=== PATIENT | female | born 1945 | race African-American/Black ===

== ENCOUNTER 2017-04-22 21:51 | Observation (INO) ==
--- NOTE | 2017-04-22 22:23 | Emergency Department Note ---
Disposition Clinical Impression: Hypokalemia, Lactic acidosis Syncope Qualifiers: Syncope type: unspecified Qualified Code(s): R55 - Syncope and collapse Disposition: Admitted As Inpatient Condition: Good Referrals: NO,PCP [Non-Partnered Physician] - Forms: ED Satisfaction Letter Time of Disposition: 01:18 General Adult HPI - General Chief complaint: ED Syncope Stated complaint: Abdominal Pain/Syncopal Episode Time Seen by Provider: 04/22/17 21:58 Source: EMS Mode of arrival: wheelchair Limitations: no limitations Nursing Notes Reviewed: Yes Vital Signs Reviewed: Yes - History of Present Illness HPI Narrative: Patient is a 71-year-old female that presents to the ED via EMS. Patient was eating dinner at [place] [employer] tonight and was sitting at the dinner table and had mid epigastric pain and got lightheaded and passed out. She denies falling or having any injury during this time. EMS stated that the patient was hypotensive upon arrival of ems. They gave 200 mL of normal saline and her blood pressure normalized. Patient states that she is now feeling a lot better and does not have any pain at this time but is feeling tired. Pain Scale: 0 - Related Data Allergies Allergy/AdvReac Type Severity Reaction Status Date / Time Penicillins AdvReac Rash Verified 04/22/17 21:53 All systems ED: reviewed and negative except as stated. Constitutional: Reports: fever Cardiovascular: Denies: chest pain, palpitations Respiratory: Reports: dyspnea Gastrointestinal: Reports: abdominal pain. Denies: nausea, vomiting Endocrine: Reports: fatigue Past Medical History - Past Medical History Medical history: Reports: hyperlipidemia, hypertension Psychiatric history: Reports: no psych history - Social History Smoking Status: Never smoker Smokeless Tobacco Status: No Alcohol use: Reports: rarely Drug use: Reports: none Physical Exam - General Limitations: no limitations General appearance: alert, in no apparent distress - Head Head exam: atraumatic, normocephalic - Eye Eye exam: Present: normal appearance, PERRL - Neck Neck exam: Present: normal inspection, trachea midline - Chest Chest inspection: Present: symmetric chest wall rise - Respiratory Respiratory exam: Present: normal lung sounds bilaterally. Absent: respiratory distress, wheezes - Cardiovascular Cardiovascular exam: Present: regular rate, normal rhythm, +S1, +S2 - Abdominal Exam Abdominal exam: Present: soft, Non-Tender, normal bowel sounds - Expanded Lower Extremity Exam Lower leg exam: Present: normal inspection. Absent: swelling, erythema - Neurological Exam Neurological exam: Present: alert, oriented X3 - Psychiatric Psychiatric exam: Present: normal affect, normal mood - Skin Skin exam: Present: warm, dry, intact Course Vital Signs Temperature 97.8 F 04/22/17 21:54 Pulse Rate 56 04/22/17 21:54 Respiratory Rate 18 04/22/17 21:54 Blood Pressure 123/74 04/22/17 21:54 O2 Sat by Pulse Oximetry 99 04/22/17 21:54 Temperature 97.8 F 04/22/17 21:54 Pulse Rate 90 04/23/17 00:43 Respiratory Rate 18 04/23/17 00:43 Blood Pressure 105/69 04/23/17 00:43 O2 Sat by Pulse Oximetry 98 04/23/17 00:43 Oxygen Delivery Oxygen Delivery Room Air Medical Decision Making - MDM Narrative Medical decision making narrative: Patient is a 71-year-old female that presents to the with abdominal pain and syncope. CT chest PE and CTA of abdomen and pelvis was negative for any dissection or aortic aneurysm. Labs showed that she had a low elevated lactic acid and was hypokalemic. Based on the patient's presentation of syncope and hypotension with elevated lactic acid and hypokalemia I am going to admit the patient. The patient has refused IV potassium given so we will give her 1 dose of K-Dur here in the ER. I spoke with the hospitalist and the patient will be admitted to their service. - Medical Records Medical records reviewed: Yes I reviewed the patient's medical records. - Lab Data Lab results reviewed: Yes I reviewed the patient's lab results. Result diagrams: 04/22/17 22:27 04/22/17 22:27 Lab Results 04/22/17 04/22/17 04/22/17 Range/Units 22:27 22:27 22:27 WBC 11.6 H (4.3-11.1) K/mcL RBC 4.05 (3.82-4.97) M/mcL Hgb 10.1 L (11.5-15.4) g/dL Hct 31.6 L (35.3-44.9) % MCV 78.0 L (83.0-100.0) fL MCH 24.9 L (28.0-33.3) pg MCHC 32.0 (31.6-35.5) g/dL RDW 15.7 H (11.5-14.5) % Plt Count 423 H (140-400) K/mcL MPV 8.7 L (9.4-12.4) fL Immature Gran % 0.3 (0-4) % Seg Neutrophils % 63.6 % Lymphocytes % 26.7 % Monocytes % 6.4 % Eosinophils % 2.4 % Basophils % 0.6 % Neutrophils # 7.4 (1.6-8.9) K/mcL Lymphocytes # 3.1 (0.6-4.6) K/mcL Monocytes # 0.8 (0.0-1.3) K/mcL Eosinophils # 0.3 (0.0-0.6) K/mcL Basophils # 0.1 (0.0-0.2) K/mcL Sodium 138 (136-145) mEq/L Potassium 2.7 L (3.5-4.5) mEq/L Chloride 106 (98-109) mEq/L Carbon Dioxide 20 (19-29) mEq/L BUN 14 (7-20) mg/dL Creatinine 0.89 (0.57-1.11) mg/dL Est GFR ( Amer) > 60 (> 60) Est GFR (Non-Af Amer) > 60 (> 60) BUN/Creatinine Ratio 16 (6-26) Glucose 92 (70-99) mg/dL Calculated Osmolality 286 (280-300) Lactic Acid 2.7 H (0.5-2.2) mmol/L Calcium 9.5 (8.6-10.8) mg/dL Magnesium 2.1 (1.6-2.6) mg/dL Total Bilirubin 0.4 (0.2-1.2) mg/dL AST 17 (5-34) Units/L ALT 16 (0-55) Units/L Alkaline Phosphatase 88 (38-126) Units/L Troponin I (0-0.03) ng/mL Serum Total Protein 7.0 (6.0-8.3) g/dL Albumin 3.7 (3.5-5.0) g/dL Globulin 3.3 (2.4-3.5) g/dL Albumin/Globulin Ratio 1.1 (1.1-2.2) Lipase 53 (8-78) Units/L Urine Opiates Screen (Vssbaw=103) ng/mL Ur Barbiturates Screen (Lkhfhv=349) ng/mL Ur Phencyclidine Scrn (Cutoff=25) ng/mL Ur Amphetamines Screen (Wocepo=8914) ng/mL U Benzodiazepines Scrn (Khzajt=875) ng/mL Urine Cocaine Screen (Cutoff= 300) ng/mL U Marijuana (THC) Screen (Cutoff = 50) ng/mL 04/22/17 04/22/17 Range/Units 22:27 23:55 WBC (4.3-11.1) K/mcL RBC (3.82-4.97) M/mcL Hgb (11.5-15.4) g/dL Hct (35.3-44.9) % MCV (83.0-100.0) fL MCH (28.0-33.3) pg MCHC (31.6-35.5) g/dL RDW (11.5-14.5) % Plt Count (140-400) K/mcL MPV (9.4-12.4) fL Immature Gran % (0-4) % Seg Neutrophils % % Lymphocytes % % Monocytes % % Eosinophils % % Basophils % % Neutrophils # (1.6-8.9) K/mcL Lymphocytes # (0.6-4.6) K/mcL Monocytes # (0.0-1.3) K/mcL Eosinophils # (0.0-0.6) K/mcL Basophils # (0.0-0.2) K/mcL Sodium (136-145) mEq/L Potassium (3.5-4.5) mEq/L Chloride (98-109) mEq/L Carbon Dioxide (19-29) mEq/L BUN (7-20) mg/dL Creatinine (0.57-1.11) mg/dL Est GFR ( Amer) (> 60) Est GFR (Non-Af Amer) (> 60) BUN/Creatinine Ratio (6-26) Glucose (70-99) mg/dL Calculated Osmolality (280-300) Lactic Acid (0.5-2.2) mmol/L Calcium (8.6-10.8) mg/dL Magnesium (1.6-2.6) mg/dL Total Bilirubin (0.2-1.2) mg/dL AST (5-34) Units/L ALT (0-55) Units/L Alkaline Phosphatase (38-126) Units/L Troponin I 0.00 (0-0.03) ng/mL Serum Total Protein (6.0-8.3) g/dL Albumin (3.5-5.0) g/dL Globulin (2.4-3.5) g/dL Albumin/Globulin Ratio (1.1-2.2) Lipase (8-78) Units/L Urine Opiates Screen Negative (Jhcrdy=534) ng/mL Ur Barbiturates Screen Negative (Wspxei=310) ng/mL Ur Phencyclidine Scrn Negative (Cutoff=25) ng/mL Ur Amphetamines Screen Negative (Nsoxwy=7049) ng/mL U Benzodiazepines Scrn Negative (Aiaqwx=036) ng/mL Urine Cocaine Screen Negative (Cutoff= 300) ng/mL U Marijuana (THC) Screen Negative (Cutoff = 50) ng/mL - Radiology Data Radiology results reviewed: Yes I reviewed the patient's radiology results. Abdomen/Pelvis CT 04/22/17 22:04 IMPRESSION: Moderate hiatal hernia. Otherwise unremarkable abdominopelvic CT. D/ / Colleen Snowden Cha, MD / Colleen Snowden Cha, MD Interpreting Provider: Colleen Snowden Cha, MD Chest CTA 04/22/17 22:10 IMPRESSION: No CT evidence pulmonary embolism. Moderate hiatal hernia. D/ / Colleen Snowden Cha, MD / Colleen Snowden Cha, MD Interpreting Provider: Colleen Snowden Cha, MD - EKG Data EKG #1 EKG attestation: Yes I reviewed and interpreted this EKG. EKG results narrative: EKG shows sinus bradycardia. Rate of 50 bpm MO interval 141, QRS duration 93, QTC 446. Normal axis. Q waves noted in lead 1 and aVL. Compared with EKG on in no acute changes in comparison to previous EKG Attestation Statement - Attestation Attestation: I examined this patient and my medical decision-making was reviewed with the PLACER MINER/PA/Advanced Practice Nurse/Resident Physician. I agree with the documented findings, disposition and treatment plan as described except to the extent set forth below. In summary 71-year-old female who presents with abdominal pain and syncope. She did have subsequent hypotension. She underwent CT scan to rule out aortic dissection. She does have findings of hiatal hernia. She was ultimately found to have metabolic derangements which included lactic acidosis as well as hypokalemia. Potassium was replaced over she did proceed to vomit. She is refusing intravenous replacement. I do feel like hypo-kalemia is contributing to her underlying syncope and possibly her feelings of weakness. As such I would like to proceed with admission for potassium replacement and monitoring. Additionally she has chronic lactic acidosis. I would like to initiate IV fluid resuscitation and recheck her lactate as an inpatient.
[2017-04-22 22:39] LABS: Basophils # 0.1 K/mcL (0.0-0.2); Basophils % 0.6 %; Eosinophils # 0.3 K/mcL (0.0-0.6); Eosinophils % 2.4 %; Hematocrit 31.6 % (35.3-44.9); Hemoglobin 10.1 g/dL (11.5-15.4); Immature Granulocytes % 0.3 % (0-4); Lymphocytes # 3.1 K/mcL (0.6-4.6); Lymphocytes % 26.7 %; Mean Corpuscular Hemoglobin 24.9 pg (28.0-33.3); Mean Platelet Volume 8.7 fL (9.4-12.4); Monocytes # 0.8 K/mcL (0.0-1.3); Monocytes % 6.4 %; Neutrophils # 7.4 K/mcL (1.6-8.9); Platelet Count 423 K/mcL (140-400); Red Blood Count 4.05 M/mcL (3.82-4.97); Red Cell Distribution Width 15.7 % (11.5-14.5); Segmented Neutrophils % 63.6 %
[2017-04-22 22:54] LABS: Alanine Aminotransferase 16 Units/L (0-55); Albumin 3.7 g/dL (3.5-5.0); Albumin/Globulin Ratio 1.1 (1.1-2.2); Alkaline Phosphatase 88 Units/L (38-126); Aspartate Amino Transferase 17 Units/L (5-34); BUN/Creatinine Ratio 16 (6-26); Bilirubin,Total 0.4 mg/dL (0.2-1.2); Blood Urea Nitrogen 14 mg/dL (7-20); Calcium 9.5 mg/dL (8.6-10.8); Carbon Dioxide 20 mEq/L (19-29); Chloride 106 mEq/L (98-109); Globulin 3.3 g/dL (2.4-3.5); Glucose 92 mg/dL (70-99); Lipase 53 Units/L (8-78); Osmolality,Calculated 286 (280-300); Potassium 2.7 mEq/L (3.5-4.5); Sodium 138 mEq/L (136-145); eGFR For African Americans > 60 (> 60); eGFR For Non-African Americans > 60 (> 60)
[2017-04-23 00:13] LABS: Amphetamine Screen,Urine Negative ng/mL (Cutoff=1000); Barbiturate Screen,Urine Negative ng/mL (Cutoff=200); Benzodiazepines Screen,Urine Negative ng/mL (Cutoff=200); Cannabinoid Screen,Urine Negative ng/mL (Cutoff = 50); Cocaine Screen,Urine Negative ng/mL (Cutoff= 300); Opiate Screen,Urine Negative ng/mL (Cutoff=300); Phencyclidine Screen,Urine Negative ng/mL (Cutoff=25)
[2017-04-23] MEDS ORDERED: 0.9 % Sodium Chloride 1,000 ML IVC ONE (00:45)
[2017-04-23 01:08] LABS: Magnesium 2.1 mg/dL (1.6-2.6)
[2017-04-23] MEDS ORDERED: Acetaminophen 325 MG TABLET PO PRN (09:02)
[2017-04-23] MEDS ORDERED: Ondansetron 4 MG/2 ML VIAL IVP PRN (09:02)
[2017-04-23] MEDS ORDERED: Naloxone 0.4 MG/ML INJ IVP PRN (09:02)
[2017-04-23 09:26] LABS: Basophils # 0.1 K/mcL (0.0-0.2); Basophils % 0.6 %; Eosinophils # 0.3 K/mcL (0.0-0.6); Eosinophils % 2.3 %; Hematocrit 30.5 % (35.3-44.9); Hemoglobin 9.8 g/dL (11.5-15.4); Immature Granulocytes % 0.3 % (0-4); Lymphocytes # 2.2 K/mcL (0.6-4.6); Mean Corpuscular HGB Conc 32.1 g/dL (31.6-35.5); Mean Corpuscular Hemoglobin 25.3 pg (28.0-33.3); Mean Corpuscular Volume 78.6 fL (83.0-100.0); Mean Platelet Volume 9.3 fL (9.4-12.4); Monocytes # 0.7 K/mcL (0.0-1.3); Monocytes % 6.5 %; Neutrophils # 7.4 K/mcL (1.6-8.9); Platelet Count 402 K/mcL (140-400); Red Blood Count 3.88 M/mcL (3.82-4.97); Red Cell Distribution Width 15.9 % (11.5-14.5); Segmented Neutrophils % 69.3 %
[2017-04-23 09:39] LABS: BUN/Creatinine Ratio 15 (6-26); Blood Urea Nitrogen 12 mg/dL (7-20); Calcium 9.3 mg/dL (8.6-10.8); Carbon Dioxide 25 mEq/L (19-29); Chloride 105 mEq/L (98-109); Glucose 99 mg/dL (70-99); Osmolality,Calculated 284 (280-300); Potassium 3.6 mEq/L (3.5-4.5); Sodium 137 mEq/L (136-145); eGFR For African Americans > 60 (> 60); eGFR For Non-African Americans > 60 (> 60)
[2017-04-23 10:50] VITALS: BP 125/77
--- NOTE | 2017-04-23 10:53 | Internal Med History&Physical ---
Date of Encounter: 04/23/17 Time of Encounter: 09:00 Assessment and Plan (1) Syncope Current visit: Yes Status: Acute Possibly vasovagal versus related to hypokalemia. Continue telemetry monitoring and cycle troponins. No strokelike symptoms. IV hydration. Check 2 -D echocardiogram and monitor vitals closely. Qualifiers: Syncope type: unspecified Qualified Code(s): R55 - Syncope and collapse (2) Hypokalemia Current visit: Yes Status: Acute Could be related to medications, will obtain home medications. Received oral potassium chloride supplementation in the emergency room. Repeat BMP and supplement as needed. (3) Lactic acidosis Current visit: Yes Status: Acute Could be secondary to volume depletion and hypoxia related to syncope. Continue IV hydration and recheck lactic acid levels. No evidence of infection. (4) Essential hypertension Current visit: Yes Status: Chronic Blood pressure currently low normal. Hold medications for now, obtain home medication list. (5) Hyperlipidemia Current visit: Yes Status: Chronic Qualifiers: Hyperlipidemia type: unspecified Qualified Code(s): E78.5 - Hyperlipidemia , unspecified Internal Medicine - H&P: HPI Chief complaint: Syncope Admitted From: Emergency Dept Plans for Post Hospital Care: Home History of present illness: Ms. Bryant is a 71 year old female with history of hypertension and hyperlipidemia was brought in with complaints of syncope. Patient was at a restaurant for dinner last evening and after completing her meal, she felt dizzy along with some epigastric discomfort and diaphoresis and was witnessed to have passed out, possibly for a few minutes. She reports that the restaurant was right beside a fire station and they were able to get the squad quickly and she noted the squad standing around her when she regained her consciousness. She reports no chest pain, palpitations, shortness of breath, cough. No similar previous episodes. Her blood pressure and heart rate have been reportedly low by the time squad arrived, which improved with some IV hydration. She was also noted to have low potassium and received potassium supplementation in the emergency room. Past Med Surg Social Fam HX - Past Medical History Medical history: hyperlipidemia, hypertension Psychiatric history: no psych history - Past Surgical History Surgical History: , cholecystectomy, hysterectomy, orthopedic, other ( Bilateral rotator cuff repairs), other (Tonsillectomy) - Social History Smoking Status: Never smoker Smokeless Tobacco Status: No Alcohol use: rarely Drug use: none Current living situation: Home - Independent Activity Level: Independent ambulation Recent Out of Country Travel Within the Last 8 Weeks: No - Family History Father Hx Family Cardiac Disorders: Yes (CAD) Sister Hx Family Cancer: Yes (Lung cancer) Internal Medicine - H&P: Meds Aspirin [Lo-Dose Aspirin EC] 81 mg PO DAILY 04/23/17 [History] Atorvastatin Calcium [Lipitor] 20 mg PO DAILY 04/23/17 [History] Cholecalciferol (D-3) [Vitamin D] 2,000 unit PO DAILY 04/23/17 [History] LORazepam [Ativan] 1 mg PO QID 04/23/17 [History] Levothyroxine [Synthroid] 100 mcg PO 0630 04/23/17 [History] Lisinopril/Hydrochlorothiazide [Zestoretic 10-12.5 mg Tablet] 1 tab PO DAILY [History] Meloxicam [Mobic] 7.5 mg PO DAILY 04/23/17 [History] Metoprolol XL (24 HR) Succ [Toprol XL] 50 mg PO DAILY 04/23/17 [History] Omeprazole [PriLOSEC] 20 mg PO DAILY 04/23/17 [History] Allergies Penicillins Adverse Reaction (Verified 04/22/17 21:53) Rash All Systems PM: A 10-system review of systems was performed and is negative for pertinent findings except as documented above in the HPI. - Constitutional Constitutional: no chills, no fever(s), no night sweats - EENT Eyes: no change in vision, no discharge, no pain, no photophobia Ears: no ear discharge, no ear pain, no tinnitus Nose, mouth and throat: no dysphagia, no nasal discharge, no neck pain, no sore throat - Cardiovascular Cardiovascular ROS IM: diaphoresis, lightheadedness, syncope - Respiratory Respiratory: no cough, no dyspnea, no wheezing, no excessive phlegm production - Gastrointestinal Gastrointestinal: abdominal pain, nausea - Genitourinary Genitourinary: no change in urinary stream, no dysuria, no flank pain, no hematuria - Musculoskeletal Musculoskeletal ROS IM: no numbness, no tingling - Integumentary Integumentary IM: no rash, no unusual bruising - Neurological Neurological ROS: no confusion, no convulsions, no focal weakness, no numbness, no tingling, no tremor(s) - Hematologic/Lymphatic Hematologic/Lymphatic: no easy bruising - Constitutional Vitals: Temp Pulse Resp BP Pulse Ox 97.6 F 57 16 125/77 99 04/23/17 10:47 04/23/17 10:47 04/23/17 10:47 04/23/17 10:47 04/23/17 10:47 General appearance: Present: A&O X 3, answers questions appropriately - Respiratory Respiratory exam: Present: CTAB. Absent: accessory muscle use, rales, rhonchi, wheezes - Cardiovascular Cardiovascular exam: Present: RRR, +S1, +S2. Absent: diastolic murmur, gallop, rubs, systolic murmur - GI/Abdominal GI/Abdominal exam: Present: normal bowel sounds, soft, no peritoneal signs. Absent: distended, tenderness - Extremities Exam Extremities exam: Present: full ROM, warm, radial pulses palpable and symetrical. Absent: calf tenderness, cyanotic, pedal edema - Neurological Exam Neurological exam: Present: CN II-XII intact, oriented X3, no focal deficits. Absent: pronater drift, facial droop, speech deficit - Skin Skin exam: Present: dry, intact Internal Med - H&P Results - Labs CBC & Chem 7: 04/23/17 09:13 04/23/17 09:13 Labs: Short CBC 04/23/17 Range/Units 09:13 WBC 10.7 (4.3-11.1) K/mcL Hgb 9.8 L (11.5-15.4) g/dL Hct 30.5 L (35.3-44.9) % Plt Count 402 H (140-400) K/mcL Neutrophils # 7.4 (1.6-8.9) K/mcL BMP 04/23/17 09:13 Sodium 137 Potassium 3.6 Chloride 105 Carbon Dioxide 25 BUN 12 Creatinine 0.82 Glucose 99 Calcium 9.3 Cardiac Enzymes 04/23/17 Range/Units 09:13 Troponin I 0.00 (0-0.03) ng/mL - EKG Data -: EKG Interpreted by Myself EKG shows normal: sinus rhythm Rate: bradycardia
[2017-04-23] MEDS ORDERED: *HR* LORazepam 1 MG TABLET PO SCH (13:00)
--- NOTE | 2017-04-23 14:13 | Electrocardiograph Report ---
[place] [id number] Test Date: 2017-04-22 Pat Name: Ashlie Bryant Department: 102 Room: 3B Gender: F Heat Reader: Gisela : 1945 Requested By: Yovany Maya Order Number: [id number] Reading MD: Cameron Bravo Measurements Intervals Almond Rate: 58 P: -11 PA: 141 QRS: -4 QRSD: 93 T: 12 QT: 450 QTc: 446 Interpretive Statements SINUS BRADYCARDIA LEFT VENTRICULAR HYPERTROPHY AND ST-T CHANGE POSSIBLE LATERAL MYOCARDIAL INFARCTION, PROBABLY OLD Electronically Signed On 04-23-2017 14:11:55 EDT by Cameron Bravo
--- NOTE | 2017-04-23 14:49 | Discharge Summary ---
Date of Encounter: 04/23/17 Time of Encounter: 14:47 - Discharge Diagnosis (1) Syncope Priority: Primary Status: Acute Qualifiers: Syncope type: vasovagal syncope Qualified Code(s): R55 - Syncope and collapse (2) Hypokalemia Priority: Primary Status: Acute (3) Lactic acidosis Priority: Primary Status: Resolved (4) Essential hypertension Priority: Secondary Status: Chronic (5) Hyperlipidemia Priority: Secondary Status: Chronic Qualifiers: Hyperlipidemia type: unspecified Qualified Code(s): E78.5 - Hyperlipidemia , unspecified (6) Hypothyroidism Priority: Secondary Status: Chronic Qualifiers: Hypothyroidism type: unspecified Qualified Code(s): E03.9 - Hypothyroidism , unspecified - Discharge Medications Prescriptions: Metoprolol XL (24 HR) Succ [Toprol Xl] 25 mg PO DAILY #30 tab.er.24h Home Medications: Aspirin [Lo-Dose Aspirin EC] 81 mg PO DAILY 04/23/17 [History] Atorvastatin Calcium [Lipitor] 20 mg PO DAILY 04/23/17 [History] Cholecalciferol (D-3) [Vitamin D] 2,000 unit PO DAILY 04/23/17 [History] LORazepam [Ativan] 1 mg PO QID 04/23/17 [History] Levothyroxine [Synthroid] 100 mcg PO 0630 04/23/17 [History] Lisinopril/Hydrochlorothiazide [Zestoretic 10-12.5 mg Tablet] 1 tab PO DAILY [History] Meloxicam [Mobic] 7.5 mg PO DAILY 04/23/17 [History] Metoprolol XL (24 HR) Succ [Toprol Xl] 25 mg PO DAILY #30 tab.er.24h 04/23/17 [ Rx] Omeprazole [PriLOSEC] 20 mg PO DAILY 04/23/17 [History] Allergies/Adverse Reactions: Allergies Penicillins Adverse Reaction (Verified 04/22/17 21:53) Rash Procedures/tests Complete & Pending: Procedures Performed prior 72 hours Category Date Time Status EV echocardiogram Routine Y 04/23/17 09:05 Completed Date of admission: 04/23/17 01:40 Primary care physician: Fercho Moses MD Discharging clinician: Marita Whitehead Anticipated date of discharge: 04/23/17 - Patient Status Disposition: Home, Self-Care Condition: Good Functional capacity at discharge: independent ambulation Overall status at discharge: patient is back to baseline - Discharge Instructions Follow Up With: Fercho Moses MD [Primary Care Provider] - Additional Instructions: Follow-up with PCP in 1-2 weeks - Diet and Activity Activity: resume usual activities as tolerated Diet: low fat, low cholesterol, low salt diet Hospital course: Ms. Bryant is a 71 year old female admitted with weakness syncope. History and presentation is consistent with possible vasovagal episode. Initial labs done in the emergency room showed hypokalemia and mild lactic acidosis, which were corrected with potassium chloride supplements and IV hydration. EKG showed no acute ischemic changes and telemetry monitoring remained uneventful. Serial troponins are normal. Patient's blood pressure and heart rate was noted to be normal, slightly bradycardic in the high 50s. Echocardiogram was done which showed preserved ejection fraction and no acute abnormality. Patient is currently medically stable for discharge. Home dose of metoprolol is being decreased to 25 mg daily due to bradycardia. She is noted to be a combination of lisinopril and hydrochlorothiazide and her blood pressure is normal at this time and hence this is being continued. Patient is encouraged to follow up with primary care provider. - Time Spent with Patient Total time spent providing and/or coordinating discharge services: Greater than 30 minutes (32 min) - Constitutional Vitals: Temp Pulse Resp BP Pulse Ox 97.6 F 57 16 125/77 99 04/23/17 10:47 04/23/17 10:47 04/23/17 10:47 04/23/17 10:47 04/23/17 10:47 General appearance: Present: A&O X 3, answers questions appropriately
[2017-04-24] MEDS ORDERED: Aspirin Enteric Coated 81 MG Tablet PO SCH (09:00)
== END 2017-04-23 16:12 | disposition home or self-care (01) ==
LOC: 3BNU 21:51 → EMEROO 21:51 → 3BNU 04-23 01:57
PROVIDERS: ADMIT Nurse Practitioner Family; ATTEND Nurse Practitioner Family